=== PATIENT | male | born 1955 ===

== ENCOUNTER 2019-04-29 08:34 | Inpatient (IN) | payer OTHER ==
[~2019-04-29] VITALS: Ht 177.8 cm; Wt 109.3 kg
[~2019-04-29 08:34] MED LIST: ATENOLOL50 MG PO; CLONAZEPAM0.5 MG PO; MASON NATURAL1000 IU PO; NAPROXEN1 POW PO; NOR5 PO
[2019-04-29 09:14] VITALS: BP 154/99
--- NOTE | 2019-04-29 16:26 | NUR ---
RECEIVED PT TRANSFERED FROM OR WITH OR NURSE COMPANY. PT IS AA/O X 4. PT HAD L TOTAL KNEE REPLACEMENT. INCISION SITE SUTURE WITH POST OP DRESING, SIMTH WRAPPED AND POLAR CARE DEVICE ON L KNEE. PT STATES PAIN 6/10 ON INCISION SIDE, BUT WITHIN TOLERANCE. WILL CONTINUE PT CARE.
[2019-04-29 16:42] VITALS: BP 105/67
--- NOTE | 2019-04-29 16:58 | NUR ---
RECEIVED FROM OR, PT ADMIT FOR LEFT KNEE TOTAL REPLACEMENT, PT IS A/O X4, VERBAL RESPONSIVE, ABLE TO TELL WHAT HE NEEDS, LUNG SOUND CLEAR BILATERAL, NO SOB, PT IS ON 2L/MIN O2 VIA NC. PO2 99%, DENY ANY CHEST PAIN OR DISCOMFORT, BOWEL SOUND PRESENT ALL 4 QUADRANTS, NO DISTENTION, NO TENDER. PEDAL PULSE PRESENT BOTH FEET, LEFT KNEE S/P SX, DRESSING INTACT, FIRST DRESSING, UNABLE ASSESS THE WOUND, POLAR CARE IS IN PLACE, IV AT RIGHT HAND, NO LEAKING, NO INFILTRATION. ALL ADLS ASSIST, ALL NEED MET, CALL LIGHT IN REACH, WILL CONTINUE TO MONITOR.
[2019-04-29 17:18] LABS: CALCIUM 8.1 mg/dL (8.5-10.1); GFR1 > 60 mL/min
[2019-04-29 17:39] LABS: CHLORIDE SERUM 108 mmol/L (98-107); CREATININE SERUM 0.6 mg/dL (0.7-1.3); GLUCOSE SERUM 109 mg/dL (74-106); POTASSIUM SERUM 4.3 mmol/L (3.5-5.1); SODIUM SERUM 144 mmol/L (136-145)
--- NOTE | 2019-04-29 19:30 | NUR ---
Awake and verbally responsive. No respiratory distress noted on room air. Denies pain at this time. Denies n/v. Left knee surgical site with dressing intact. Polar care in place. Denies numbness or tingling sensation noted. Pedal pulses palpable. Able to wiggle toes. Will cont.to monitor. Call light within reach.
--- NOTE | 2019-04-29 19:34 | NUR ---
ENDORSED PT CARE TO RECEIVING NURSE. PT REST ON BED WITH AT BEDSIDE. PT GOT OUT BED WITH PHYSICAL THERAPIST, TOLERATE WELL, PAIN WITHIN MANAGEMENT. HALL IN PLACE, DRAINING FREELY VIA GRAVITY. PT BREATHING ON O2 2L VIA NC, UNLABORED. L FOOT SENSATION INTACT AT THIS TIME.
[2019-04-29 21:22] VITALS: BP 113/69
--- NOTE | 2019-04-30 04:35 | NUR ---
Afebrile. No significant change in condition noted. Pain controlled. (+)cms LLE. Had IV ancef. NO n/v noted. SCD in place. In no apparent distress.
[2019-04-30 05:52] VITALS: BP 118/71
[2019-04-30 06:43] LABS: CALCIUM 8.4 mg/dL (8.5-10.1); CARBON DIOXIDE 29.9 mmol/L (21-32); CHLORIDE SERUM 107 mmol/L (98-107); CREATININE SERUM 0.7 mg/dL (0.7-1.3); GFR1 > 60 mL/min; GLUCOSE SERUM 120 mg/dL (74-106); POTASSIUM SERUM 4.7 mmol/L (3.5-5.1); SODIUM SERUM 143 mmol/L (136-145)
[2019-04-30] MEDS ORDERED: ECO81 PO (07:22)
[2019-04-30] MEDS ORDERED: COL100 PO (07:22)
[2019-04-30] MEDS ORDERED: ACETAMINOPHEN-H1 TA1 PO (07:22)
[2019-04-30 07:29] LABS: BASOPHIL % 0 % (0-2); PLATELET COUNT 146 x10^3mcL (130-400); RED CELL DISTRIBUTION WIDTH 14.3 % (11.5-14.5)
--- NOTE | 2019-04-30 07:41 | NUR ---
A+OX4, NO RESPRIATORY DISTRESS NOTED, MEDSURG, PULSES MODERATE AND EQUAL VILMA, NO EDEMA NOTED, LUNG SOUNDS CTA, TOELRTING RA, BOWEL SOUNDS ACTIVE, HALL CATH DRAINING TO GRAVITY, L KNEE WEAKNESS, L KNEE S/P TK REPLACEMENT WITH DRESSING CDI, POLAR CARE TO L KNEE, IV IN R HAND WITH NS @ 80 ML/HR, SITE WNL.
--- NOTE | 2019-04-30 09:00 | NUR ---
PT REQUESTING TO HAVE POLAR CARE MACHINE FOR L KNEE SENT TO HOME UPON DC. DR GRECO NOTIFIED AND ORDERED TO PUT IN SS REQUEST FOR POLAR CARE TO BE SENT TO HOME. DR GRECO ALSO ORDERED TO REMOVE HALL CATH.
--- NOTE | 2019-04-30 09:29 | NUR ---
PT RESTING IN BED, NO RESPIRATORY DISTRESS NOTED, DENIES PAIN AT THIS TIME, AT BEDSIDE, CALL LIGHT WITHIN REACH. HALL CATH REMOVED WITH CATHETER INTACT. PT INSTRUCTED TO INFORM NURSE AFTER HE VOIDS FOR THE FIRST TIME AFTER HALL REMOVAL.
[2019-04-30 09:32] VITALS: BP 135/73
--- NOTE | 2019-04-30 11:49 | NUR ---
PT COMPLAINING OF 8/10 L KNEE PAIN WHILE WORKING WITH PHYSICAL THERAPY, [place]CO PO GIVEN. GREEN BUILDING ENERGY ENGINEER NICOLE AT BEDSIDE STATES PT WILL BE ABLE TO GO HOME WITH PLOAR CARE MACHINE. NURSE AALIYAH WILL EITHER BRING PT NEW MACHINE OR LET HIM TAKE THE ONE AT BEDSIDE HOME. AALIYAH ALSO TO GIVE PT EDUCATION ON HOW TO USE POLAR CARE MACHINE.
--- NOTE | 2019-04-30 12:11 | NUR ---
NURSE AALIYAH AT BEDSIDE GAVE EDUCATION AND INSERVICE ON HOW TO USE POLAR CARE MACHINE TO L KNEE TO . PER AALIYAH, OKAY FOR PT TO TAKE POLAR CARE MACHINE AT BEDSIDE HOME.
[2019-04-30 12:54] VITALS: BP 135/73
--- NOTE | 2019-04-30 13:00 | NUR ---
PT GIVEN DC INSTRUCTIONS AND WITNESSED PT SIGN ALL DC FORMS. PT GIVEN [email or web address] CARE CUBE LOT NUMBER [id number]. HOUSE SUP AWARE. IV REMOVED WITH CATHETER INTACT, GAUZE AND TAPE PLACED ON SITE. [facility] WITH NO TELE.
--- NOTE | 2019-04-30 14:02 | NUR ---
PT OFF UNIT VIA WC WITH ALL BELONGINGS ESCORTED BY [employer]OTE[employer] OFFICER AND FAMILY.
--- NOTE | 2019-04-30 14:10 | NUR ---
CEN[employer]AL SUP[employer] NOTIFIED THAT PT TOOK THE [facility] CUBE #[id number], LOT [phone] HOME WITH HOUSE SUP PERMISSION.
== END 2019-04-30 13:43 | disposition home or self-care (01) | DRG 470 ==
LOC: MU 08:34 → DU 10:30 → MU 16:14
PROVIDERS: ADMIT Orthopaedic Surgery
PROC: 0SRD0JZ Replacement of Left Knee Joint with Synthetic Substitute, Open Approach (ICD-10-PCS; principal; 2019-04-29 10:30)
DX: M17.12 Unilateral primary osteoarthritis, left knee (principal); I10 Essential (primary) hypertension; G47.30 Sleep apnea, unspecified; M81.0 Age-related osteoporosis without current pathological fracture; Z86.73 Personal history of transient ischemic attack (TIA), and cerebral infarction without residual deficits; Z68.36 Body mass index [BMI] 36.0-36.9, adult
CPT/HCPCS: 97116-GP; 97530-GP; C1713; C1776; G0378; J0690; J1170; J1885; J2175; J2250; J2270; J2405; J2704; J3010; J3490; J7030; J7120; Q0092